=== PATIENT | male | born 1975 | race Caucasian/White ===

== ENCOUNTER 2019-02-14 15:23 | Outpatient (CLI) | payer OTHER ==
--- NOTE | 2019-02-15 14:22 | XRAY Report ---
Reason: ACQUIRED DEFORMITY OF CHEST AND RIB Procedure Date: 02/14/2019 Accession Number: [id number] / [id number] Procedure: XR - Ribs w/PA Chest LT CPT Code: FULL RESULT: EXAM: LEFT RIB RADIOGRAPHY EXAM DATE: 02/14/2019 03:53 PM. CLINICAL HISTORY: Nonpainful mass left anterior chest for 10 years. 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 COMPARISON: None. TECHNIQUE: 1 view of the chest and 2 views of the ribs. FINDINGS: Bones: Normal. No fracture or bone lesion. Lungs: No focal opacities. No pneumothorax. No pleural effusions. Mediastinum: Heart and mediastinal contours are unremarkable. Other: BB marker over the left anterior chest at the level of the second costochondral cartilage. No appreciable soft tissue abnormalities by chest x-ray. IMPRESSION: Normal chest and rib radiography. [facility]
== END 2019-02-14 15:24 | disposition home or self-care (01) ==
LOC: DI 15:23
PROVIDERS: ATTEND Physician Assistant Medical
DX: M95.4 Acquired deformity of chest and rib (principal)

== ENCOUNTER 2021-01-08 08:00 | Outpatient (CLI) | payer OTHER | END 2021-01-08 23:59 | disposition home or self-care (01) | LOC: LAB.R 08:00 | PROVIDERS: ATTEND Physician Assistant Medical | DX: J02.9 Acute pharyngitis, unspecified (principal); Z20.822 Contact with and (suspected) exposure to COVID-19 | CPT/HCPCS: 87070; 87275; 87276 ==